=== PATIENT | male | born 1965 | race American Indian/Alaskan Native ===

== ENCOUNTER 2021-12-01 15:46 | Emergency (ER) | payer OTHER, MEDICARE ==
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
[2021-12-01] MEDS ORDERED: ONDANSETRON 4 MG ODT TAB PO ONE (21:34)
[2021-12-01] MEDS ORDERED: HYDROcodone/ACETAMINOPHEN 5-325 MG TAB PO ONE (21:44)
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
[2021-12-02 00:37] VITALS: BP 186/100
== END 2021-12-02 00:35 | disposition home or self-care (01) ==
LOC: ED 15:46
DX: S20.212A Contusion of left front wall of thorax, initial encounter (principal); M79.18 Myalgia, other site; N18.6 End stage renal disease; Z88.0 Allergy status to penicillin; Z88.8 Allergy status to other drugs, medicaments and biological substances; X58.XXXA Exposure to other specified factors, initial encounter; Y93.9 Activity, unspecified; Y92.89 Other specified places as the place of occurrence of the external cause; Y99.8 Other external cause status
CPT/HCPCS: 71250; 72040; 72072; 72100; 82962; 99284; J3490; Q0162